=== PATIENT | male | born 1950 | race African-American/Black ===

== ENCOUNTER 2016-08-19 11:58 | Emergency (ER) | payer BC ==
[~2016-08-19] VITALS: Ht 182.9 cm; Wt 78.2 kg
[~2016-08-19 11:58] MED LIST: COLACE100 MG PO; Ecotrin PO; MIRALAX17 GM PO; VICODIN 5-3001 EACH PO
[2016-08-19 13:25] LABS: CHLORIDE 111 mEq/L (99-109); POTASSIUM 4.2 mEq/L (3.7-5.4); SODIUM 144 mEq/L (136-147)
[2016-08-19 13:27] LABS: GLUCOSE 124 mg/dL (70-99)
[2016-08-19 13:28] LABS: ANION GAP 10 MEQ/L (2-14)
[2016-08-19 13:31] LABS: GFR ESTIMATE (CALCULATED) > 59 mL/min/
[2016-08-19 13:32] LABS: UREA NITROGEN (BUN) 16 mg/dL (9-23)
[2016-08-19] MEDS ORDERED: OMEPRAZOLE20 MG PO (13:34)
[2016-08-19] MEDS ORDERED: LEXAPRO10 MG PO (13:34)
[2016-08-19 14:12] LABS: HEMATOCRIT 42.3 % (38.0-50.0); MCH 30.7 PG (29.0-34.0); MCHC 34.3 G/DL (30.0-36.0); MCV 89.4 FL (86-99); MEAN PLAT.VOLUME 10.2 uM^3 (9.0-12.4); PLATELET COUNT 154 K/uL (156-360); RBC DIS.WIDTH-CV 12.9 % (11.8-14.6); RBC DIS.WIDTH-SD 41.7 % (39-53); RED BLOOD COUNT 4.73 M/uL (4.00-5.50); WHITE BLOOD COUNT 5.6 K/uL (4.1-10.2)
[2016-08-19] MEDS ORDERED: FLEXERIL10 MG PO (14:19)
[2016-08-19 14:33] VITALS: BP 152/73
== END 2016-08-19 14:33 | disposition home or self-care (01) ==
LOC: EME 11:58
PROVIDERS: Emergency Medicine
DX: M25.511 Pain in right shoulder (principal); M25.512 Pain in left shoulder; M54.9 Dorsalgia, unspecified; R41.0 Disorientation, unspecified; W00.0XXA Fall on same level due to ice and snow, initial encounter
CPT/HCPCS: 70450; 71020; 73030; 80048; 85027; 99281; 99284

== ENCOUNTER → 2017-04-13 | Outpatient (CLI) | payer BC ==
[~2017-04-13] MED LIST changes: +FLEXERIL10 MG PO; +LEXAPRO10 MG PO; +OMEPRAZOLE20 MG PO
== END | disposition home or self-care (01) ==
LOC: CDC 11:09
DX: S43.422D Sprain of left rotator cuff capsule, subsequent encounter (principal)
CPT/HCPCS: 93000